=== PATIENT | male | born 1995 ===

== ENCOUNTER 2020-12-16 22:38 | Emergency (ER) | payer SELFPAY ==
[~2020-12-16] VITALS: Ht 162.6 cm; Wt 60.0 kg
[2020-12-16 22:49] VITALS: BP 158/101
[2020-12-16] MEDS ORDERED: SODIUM CHLORIDE 0.9% 1,000ML IVBOLUS ONE (23:00)
[2020-12-16] MEDS ORDERED: LORazepam 2 MG/ML, 1ML IVPush ONE (23:00)
[2020-12-16 23:06] LABS: BASOPHILS % (AUTO) 1 % (0-1); EOSINOPHILS % (AUTO) 0 % (1-7); LYMPHOCYTES % (AUTO) 17 % (22-44); MEAN CORPUSCULAR HGB CONC 35.2 g/dL (33.2-36.2); MEAN PLATELET VOLUME 7.4 fL (7.4-10.4); MONOCYTES % (AUTO) 8 % (2-9); NEUTROPHILS % (AUTO) 74 % (42-75); PLATELET COUNT 307 x10^3/uL (130-400); RED BLOOD COUNT 5.26 x10^6/uL (4.38-5.82); RED CELL DISTRIBUTION WIDTH 12.7 % (9.4-14.8)
[2020-12-16 23:15] LABS: ALBUMIN 4.4 g/dL (3.4-5.0); ANION GAP 10 mmol/L (5-15); CALCIUM 9.2 mg/dL (8.5-10.1); CHLORIDE 104 mmol/L (98-107); MD NO
[2020-12-16 23:18] LABS: ALANINE AMINOTRANSFERASE 26 U/L (12-78); ALKALINE PHOSPHATASE 59 U/L (45-117); BILIRUBIN,TOTAL 1.2 mg/dL (0.2-1.0); TOTAL PROTEIN 7.8 g/dL (6.4-8.2)
--- NOTE | 2020-12-16 23:27 | NUR ---
PT BIB [facility], FOUND IN THE ROADWAY IN POSITION PULLING HIS HAIR AND ANXIOUS. PT IS MORE CALM NOW, AND STATES HE ONLY SPEAKS YAKUT. MD TO BEDSIDE AND TRANSLATION PROVIDED TO MD. PT UNDERSTANDS [place]I, JUST CAN'T SPEAK IT WELL. PT STATES HE DOES COCAINE AND METHAMPHETAMINES AND MARIJUANA, BUT ONLY SMOKED MARIJUANA TODAY. PT PROVIDED URINE FOR UDS/UA, AND SENT TO LAB. PTS BLOOD DRAWN BY PILE DRIVER OPERATOR. AND PIV TO LEFT AC STARTED X1 ATTEMPT, 18G. FLUSHES EASILY AND NO REDNESS NOTED, AND SECURED WELL.
[2020-12-16] MEDS ORDERED: PLEASE ENTER ALLERGIES MC SCH (23:30)
[2020-12-16] MEDS ORDERED: LORazepam 2 MG/ML, 1ML ONE (23:31)
[2020-12-16 23:53] LABS: AMPHETAMINE SCREEN, URINE Positive (Negative); BARBITURATE SCREEN, URINE Negative (Negative); BENZODIAZEPINE SCREEN, URINE Negative (Negative); CANNABINOID SCREEN, URINE Positive (Negative); COCAINE SCREEN, URINE Positive (Negative); METHADONE SCREEN, URINE Negative (Negative); OPIATE SCREEN, URINE Negative (Negative)
--- NOTE | 2020-12-17 00:32 | NUR ---
PT REMAINS GROGGY, BUT AWAKENS AND IS A&OX4. PT STABLE TO STAND, WHEN HE STOOD TO GIVE URINE SAMPLE IN BEDSIDE URINAL. PIV INTACT, NS FLUIDS ALMOST FINISHED, PT TO BE D/C'D.
--- NOTE | 2020-12-17 01:33 | NUR ---
PT A&OX4, AND ABLE TO STAND AND WALK. F/U AND D/C INSTRUCTIONS GIVEN TO PT AND HE V/U. PIV D/C'D AND CATH TIP INTACT. PT AMBULATED OUT.
== END 2020-12-17 01:35 | disposition home or self-care (01) ==
LOC: ED 23:00
DX: F41.1 Generalized anxiety disorder (principal); F15.150 Other stimulant abuse with stimulant-induced psychotic disorder with delusions; F14.150 Cocaine abuse with cocaine-induced psychotic disorder with delusions; F12.129 Cannabis abuse with intoxication, unspecified; Z72.9 Problem related to lifestyle, unspecified; I10 Essential (primary) hypertension; E11.9 Type 2 diabetes mellitus without complications; F17.200 Nicotine dependence, unspecified, uncomplicated
CPT/HCPCS: 36415; 80053; 80307; 80320; 85025; 96361; 96374; 99283; J2060; J7030; G0480